=== PATIENT | female | born 1965 ===

== ENCOUNTER 2024-05-26 07:09 | Outpatient (CLI) | payer OTHER | END 2024-05-26 07:17 | disposition home or self-care (01) | LOC: MAMO-SONO 07:09 | PROVIDERS: ATTEND Obstetrics & Gynecology | DX: N60.12 Diffuse cystic mastopathy of left breast (principal); N60.11 Diffuse cystic mastopathy of right breast; Z12.31 Encounter for screening mammogram for malignant neoplasm of breast ==

== ENCOUNTER 2024-05-26 08:29 | Outpatient (CLI) | payer OTHER | END 2024-05-26 08:30 | disposition home or self-care (01) | LOC: NUCLEAR 08:29 | PROVIDERS: ATTEND Obstetrics & Gynecology | DX: M81.0 Age-related osteoporosis without current pathological fracture (principal); M85.80 Other specified disorders of bone density and structure, unspecified site; Z13.820 Encounter for screening for osteoporosis ==

== ENCOUNTER → 2024-08-29 09:55 | Outpatient (CLI) | payer OTHER ==
[2024-08-29 10:32] LABS: HEMATOCRIT 39.4 % (36.0-45.00); HEMOGLOBIN 13.1 g/dL (12.0-15.00); MEAN CELL VOLUME 79.4 fL (80.00-100.00); MEAN CORPUSCULAR HEMOGLOBIN 26.3 pg (27.00-32.0); MEAN CORPUSCULAR HGB CONC 33.2 g/dl (32.0-36.0); PLATELET COUNT 214 K/uL (150-450); RED BLOOD COUNT 4.97 M/uL (4.00-6.00)
[2024-08-29 11:19] LABS: ALBUMIN 3.5 gm/dL (3.4-5.0); BILIRUBIN TOTAL 0.7 mg/dL (0.3-1.2); CALCIUM 9.1 mg/dL (8.5-10.1); CREATININE SERUM 0.99 mg/dL (0.55-1.02); GFR 57.41; GLOBULINA 3.5 G/DL (2.4-3.5); POTASSIUM 4.2 mEq/L (3.5-5.1)
== END | disposition home or self-care (01) ==
LOC: LAB 09:55
PROVIDERS: ATTEND Internal Medicine Gastroenterology
DX: K92.1 Melena (principal)

== ENCOUNTER 2024-08-29 10:27 | Outpatient (CLI) | payer OTHER | END 2024-08-29 10:30 | disposition home or self-care (01) | LOC: SONOGRAMA 10:27 | PROVIDERS: ATTEND Internal Medicine Gastroenterology | DX: R16.0 Hepatomegaly, not elsewhere classified (principal) ==

== ENCOUNTER 2025-04-29 08:12 | Outpatient (CLI) | payer OTHER | END 2025-04-29 08:14 | disposition home or self-care (01) | LOC: RAD 08:12 | PROVIDERS: ATTEND Internal Medicine | DX: J45.40 Moderate persistent asthma, uncomplicated (principal); R06.00 Dyspnea, unspecified; E66.9 Obesity, unspecified ==